=== PATIENT | male | born 1955 | race Caucasian/White ===

== ENCOUNTER 2021-04-04 20:58 | Inpatient (IN) | payer MEDICARE, MEDICAID ==
[~2021-04-04] VITALS: Ht 188 cm; Wt 129.6 kg
--- NOTE | 2021-04-04 21:40 | NUR ---
Pt is a poor historian. Pt c/o SOB, painful B LE, and edema to B LE. Coarse lung sounds throughout all swartz, +moist cough. Pt has a very large abd with redness below naval. Skin on abd has an orange peal look. B LE have edema and redness. L quijano has an area weeping serious fluid.
[2021-04-04 21:48] LABS: BASOPHILS # (AUTO) 0.1 X10'3 (0-0.2); EOSINOPHILS % (AUTO) 0.5 % (0-6); HEMOGLOBIN 13.4 g/dl (14.0-17.9)
[2021-04-04 21:50] LABS: BASOPHILS % (AUTO) 1.1 % (0-1); HEMATOCRIT 40.9 % (42.0-52.0); LYMPHOCYTES # (AUTO) 0.8 X10'3 (1.1-4.8); LYMPHOCYTES % (AUTO) 11.5 % (21-51); MEAN CORPUSCULAR HEMOGLOBIN 29.5 PG (27.0-31.0); MEAN CORPUSCULAR HGB CONC 32.8 g/dL (33.0-36.5); MEAN PLATELET VOLUME 7.6 FL (7.4-10.4); MONOCYTES % (AUTO) 14.8 % (2-12); NEUTROPHILS % (AUTO) 72.1 % (42-75); PLATELET COUNT 225 X10'3 (140-440); RED BLOOD COUNT 4.55 X10'6 (4.70-6.10); RED CELL DISTRIBUTION WIDTH 16.7 % (11.5-14.5); WHITE BLOOD COUNT 6.9 X10'3 (4.5-11.0)
[2021-04-04 21:54] LABS: ALANINE AMINOTRANSFERASE 42 U/L (12-78); ALBUMIN 3.3 G/DL (3.4-5.0); ALBUMIN/GLOBULIN RATIO 0.7 (1.1-1.5); ALKALINE PHOSPHATASE 95 IU/L (46-116); ANION GAP 6 (8-16); ASPARTATE AMINO TRANSFERASE 19 U/L (10-37); BILIRUBIN,TOTAL 0.4 MG/DL (0.1-1.0); BLOOD UREA NITROGEN 19 MG/DL (7-18); BUN/CREATININE RATIO 17.4 (5.4-32.0); CALCIUM 7.9 MG/DL (8.5-10.1); CHLORIDE 101 MMOL/L (99-107); CREATININE 1.09 MG/DL (0.60-1.10); GLUCOSE 211 MG/DL (70-104); SODIUM 140 MMOL/L (135-145); TOTAL CARBON DIOXIDE 33.3 MMOL/L (24-32); TOTAL PROTEIN 7.8 G/DL (6.4-8.2); eGFR 68 ML/MIN
[2021-04-04] MEDS ORDERED: furosemide 10 MG/1 ML 10ml inj IV ONE (22:25)
--- NOTE | 2021-04-04 22:45 | NUR ---
Placed a condom catheter on pt for urine collection and comfort.
[2021-04-04] MEDS ORDERED: iohexol 350MG/ML 100ml bottle IV ONE (23:05)
[2021-04-04] MEDS ORDERED: LORazepam 1 MG tablet PO ONE (23:35)
[2021-04-04] MEDS ORDERED: LORazepam 2 mg/ml vial IM ONE (23:40)
[2021-04-04] MEDS ORDERED: LORazepam 2 mg/ml vial IV ONE (23:50)
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
[2021-04-05 00:14] LABS: CLARITY,URINE CLEAR (Clear); GLUCOSE, URINE NEGATIVE (Neg); KETONES,URINE NEGATIVE (Neg); LEUKOCYTE ESTERASE ,URINE NEGATIVE (Neg); NITRITES, URINE NEGATIVE (Neg); OCCULT BLOOD,URINE NEGATIVE (Neg); PROTEIN,URINE NEGATIVE (Neg); UROBILINOGEN,URINE 0.2 E.U/dL (0.2-1.0)
[2021-04-05 00:16] LABS: UA COLLECTION TYPE CLN CATCH MIDSTREAM
[2021-04-05 00:21] LABS: COLOR,URINE Straw (Yellow)
--- NOTE | 2021-04-05 00:25 | NUR ---
Report given to HALEY Reddy.
[2021-04-05] MEDS ORDERED: morphine 2 MG/ML inj. syringe IV PRN ×2 (02:35)
[2021-04-05] MEDS ORDERED: normal saline 1000ml 1,000 ML IV SCH (02:35)
[2021-04-05] MEDS ORDERED: HYDROmorphone/PF 0.2 MG/ML SYRINGE IV PRN (02:35)
[2021-04-05] MEDS ORDERED: magnesium hydroxide 30ml (MOM) UD suspension PO PRN (02:35)
[2021-04-05] MEDS ORDERED: bisacodyl 10mg suppository rectal RC PRN (02:35)
[2021-04-05] MEDS ORDERED: diphenhydrAMINE 25mg capsule PO PRN (02:35)
[2021-04-05] MEDS ORDERED: mag hydrox/Alum hydrox/simeth 30ml oral suspension PO PRN (02:35)
[2021-04-05] MEDS ORDERED: diphenhydrAMINE 50 mg/ml inj IV PRN (02:35)
[2021-04-05] MEDS ORDERED: HYDROcodone/acetaminophen 5mg/325mg tablet PO PRN (02:35)
[2021-04-05] MEDS ORDERED: acetaminophen 325mg tablet PO PRN ×2 (02:35)
[2021-04-05] MEDS ORDERED: HYDROmorphone inj. 0.5 MG/0.5 ML DISP.SYRIN IV PRN (02:35)
[2021-04-05] MEDS ORDERED: ondansetron 4mg rapidly disintigrating tab PO PRN (02:35)
[2021-04-05] MEDS ORDERED: ondansetron/PF 4mg/2ml inj IV PRN (02:35)
[2021-04-05] MEDS ORDERED: acetaminophen 650mg rectal suppository RC PRN (02:35)
[2021-04-05] MEDS ORDERED: MESSAGE TO PHARMACY PO ONE (02:45)
[2021-04-05] MEDS ORDERED: dextrose 50%-water 50ml dispensing syringe IV PRN ×2 (02:45)
[2021-04-05] MEDS ORDERED: dextrose ORAL solution 15 GM/59 ML bottle PO PRN ×2 (02:45)
[2021-04-05] MEDS ORDERED: glucagon, human recombinant 1mg kit SUBCUT PRN (02:45)
[2021-04-05] MEDS ORDERED: insulin Lispro (HumaLOG) vial - multi-dose SQ SCH (02:45)
[2021-04-05 03:52] LABS: URINE AMPHETAMINE SCREEN NEGATIVE (Neg); URINE BARBITUATE SCREEN NEGATIVE (Neg); URINE BENZODIAZEPINES SCREEN NEGATIVE (Neg); URINE CANNABINOID SCREEN NEGATIVE (Neg); URINE COCAINE SCREEN NEGATIVE (Neg); URINE METHADONE SCREEN NEGATIVE (Neg); URINE OPIATE SCREEN NEGATIVE (Neg); URINE PHENCYCLIDINE SCREEN NEGATIVE (Neg)
[2021-04-05 05:16] VITALS: BP 135/87
[2021-04-05 07:00] VITALS: BP 113/62
[2021-04-05] MEDS ORDERED: FLU VACC QS2021-22(6MOS UP)/PF 60 MCG/0.5 ML SYRINGE IM ONE (07:10)
[2021-04-05 07:55] LABS: CREATINE KINASE 94 U/L (39-308); LIPASE 64 U/L (73-393); MAGNESIUM 2.2 MG/DL (1.5-2.4); PHOSPHORUS 4.9 MG/DL (2.3-4.5)
[2021-04-05] MEDS ORDERED: enoxaparin 40mg/0.4ml syringe SUBCUT SCH (08:00)
[2021-04-05] MEDS ORDERED: lisinopril 10 MG tablet PO SCH (08:00)
[2021-04-05] MEDS: nitroGLYCERIN 0.4mg/hour patch TD SCH (08:00)
[2021-04-05] MEDS ORDERED: furosemide 10 MG/1 ML 10ml inj IV SCH (08:00)
[2021-04-05] MEDS: pantoprazole 40mg Tablet.DR PO SCH (08:05)
[2021-04-05] MEDS: atorvastatin 20mg tablet PO SCH (08:06)
[2021-04-05] MEDS: docusate sod 100mg capsule PO SCH ×2 (08:11→19:16)
[2021-04-05] MEDS: amLODIPine 5mg tablet PO SCH (08:12)
[2021-04-05 08:14] LABS: ALANINE AMINOTRANSFERASE 38 U/L (12-78); ALBUMIN 3.1 G/DL (3.4-5.0); ALBUMIN/GLOBULIN RATIO 0.7 (1.1-1.5); ALKALINE PHOSPHATASE 76 IU/L (46-116); ANION GAP 7 (8-16); ASPARTATE AMINO TRANSFERASE 21 U/L (10-37); BILIRUBIN,TOTAL 0.5 MG/DL (0.1-1.0); BLOOD UREA NITROGEN 14 MG/DL (7-18); BUN/CREATININE RATIO 16.7 (5.4-32.0); CALCIUM 7.8 MG/DL (8.5-10.1); CHLORIDE 103 MMOL/L (99-107); CREATININE 0.84 MG/DL (0.60-1.10); GLUCOSE 135 MG/DL (70-104); POTASSIUM 4.1 MMOL/L (3.5-5.1); SODIUM 143 MMOL/L (135-145); TOTAL CARBON DIOXIDE 32.8 MMOL/L (24-32); TOTAL PROTEIN 7.6 G/DL (6.4-8.2); eGFR > 90 ML/MIN
[2021-04-05] MEDS ORDERED: potassium Cl 40MEQ/1/2NS 520ml 520 ML IV PRN (10:35)
[2021-04-05] MEDS ORDERED: potassium Cl 20 mEq SR tablet PO PRN ×2 (10:35)
[2021-04-05] MEDS ORDERED: magnesium Cl slow-release 64mg tablet PO PRN (10:35)
[2021-04-05] MEDS ORDERED: magnesium 4gm in 100ml NS 100 ML IV PRN (10:35)
[2021-04-05] MEDS ORDERED: magnesium 2GM in 50ml NS 50 ML IV PRN (10:35)
[2021-04-05 11:00] VITALS: BP 140/75
[2021-04-05 11:02] LABS: BASOPHILS # (AUTO) 0.1 X10'3 (0-0.2); BASOPHILS % (AUTO) 1.5 % (0-1); EOSINOPHILS % (AUTO) 0.5 % (0-6); HEMOGLOBIN 13.2 g/dl (14.0-17.9); LYMPHOCYTES # (AUTO) 0.7 X10'3 (1.1-4.8); LYMPHOCYTES % (AUTO) 9.5 % (21-51); MEAN CORPUSCULAR HEMOGLOBIN 29.8 PG (27.0-31.0); MEAN CORPUSCULAR VOLUME 90.4 FL (78-98); MEAN PLATELET VOLUME 7.9 FL (7.4-10.4); MONOCYTES # (AUTO) 1.2 X10'3 (0-0.9); MONOCYTES % (AUTO) 16.7 % (2-12); NEUTROPHILS # (AUTO) 5.4 X10'3 (1.8-7.7); NEUTROPHILS % (AUTO) 71.8 % (42-75); PLATELET COUNT 216 X10'3 (140-440); RED BLOOD COUNT 4.43 X10'6 (4.70-6.10); RED CELL DISTRIBUTION WIDTH 16.3 % (11.5-14.5); WHITE BLOOD COUNT 7.5 X10'3 (4.5-11.0)
[2021-04-05 11:11] LABS: D-DIMER 0.82 MG/L FEU (0-0.50)
[2021-04-05] MEDS ORDERED: FLO0.4C PO (11:38)
[2021-04-05] MEDS ORDERED: FLUT1DIS20 INH (11:38)
[2021-04-05] MEDS ORDERED: BUSP15TA8 PO (11:38)
[2021-04-05] MEDS ORDERED: APIX5TAB3 PO (11:38)
[2021-04-05] MEDS ORDERED: LISI20TA28 PO (11:38)
[2021-04-05] MEDS ORDERED: FURO40TA4 PO (11:38)
[2021-04-05] MEDS ORDERED: FAMO20TA82 PO (11:38)
[2021-04-05] MEDS ORDERED: METO-467 PO (11:38)
[2021-04-05 11:51] LABS: ANISOCYTOSIS 1+; PLATELET ESTIMATE NORMAL; TOTAL CELLS COUNTED 100
[2021-04-05 11:52] LABS: POLYCHROMASIA 1+
--- NOTE | 2021-04-05 14:05 | NUR ---
Diabetes consult: Noted A1C 7. Pt unavailable at time of assessment. Placed written DM education w/ RD contact info in pt chart. Addendum: 04/05/21 at [address] Amended: Links added.
[2021-04-05 15:00] VITALS: BP 115/61
--- NOTE | 2021-04-05 17:26 | NUR ---
pt had large incontinent episode this morning with the whole bed soaked in urine and one unmeasured urination episode in the toilet . Pt educated on use of urinal and the importance of measuring urine .
[2021-04-05 18:00] VITALS: BP 98/57
--- NOTE | 2021-04-05 18:15 | NUR ---
Problems reprioritized. Patient report given, questions answered & plan of care reviewed with Mora DE LEON. Patient resting in bed in no acute distress.
--- NOTE | 2021-04-05 18:28 | NUR ---
Patient in room PCU 3015. I have received report from Adwoa DE LEON and had the opportunity to ask questions and assume patient care.
[2021-04-05] MEDS: famotidine 20mg tablet PO SCH (19:13)
[2021-04-05] MEDS: busPIRone 15mg tablet PO SCH (19:14)
[2021-04-05] MEDS: apixaban 5mg tablet PO SCH (19:14)
[2021-04-05] MEDS: furosemide 40mg/4ml inj IV SCH (19:15)
[2021-04-05] MEDS: metoprolol tartrate 50mg tablet PO SCH (19:15)
[2021-04-05] MEDS: K and/or MAG REPLACEMENT MC SCH (20:00)
[2021-04-05] MEDS ORDERED: furosemide 20 MG/2 ML vial IV SCH (20:00)
[2021-04-05] MEDS: albuterol 2.5 MG/3 ML nebule NEB SCH (20:38)
[2021-04-05] MEDS: budesonide 0.5mg/2ml UD nebule IH SCH (20:38)
[2021-04-05] MEDS: insulin glargine (Lantus) pen - multi-dose SQ SCH (21:00)
[2021-04-05] MEDS ORDERED: temazepam 15mg capsule PO PRN (21:00)
[2021-04-05] MEDS: tamsulosin 0.4mg capsule PO SCH (21:29)
[2021-04-05 22:00] VITALS: BP 101/57
[2021-04-06 02:00] VITALS: BP 114/58
[2021-04-06] MEDS: albuterol 2.5 MG/3 ML nebule NEB SCH ×4 (02:11→21:13)
--- NOTE | 2021-04-06 06:25 | NUR ---
Problems reprioritized. Patient report given, questions answered & plan of care reviewed with Sohail DE LEON.
--- NOTE | 2021-04-06 06:29 | NUR ---
Patient in room PCU 3015. I have received report from Mora DE LEON and had the opportunity to ask questions and assume patient care.
[2021-04-06 06:55] LABS: BASOPHILS # (AUTO) 0.1 X10'3 (0-0.2); EOSINOPHILS # (AUTO) 0.1 X10'3 (0-0.9); HEMATOCRIT 38.2 % (42.0-52.0); HEMOGLOBIN 12.5 g/dl (14.0-17.9); LYMPHOCYTES # (AUTO) 0.7 X10'3 (1.1-4.8); LYMPHOCYTES % (AUTO) 10.8 % (21-51); MEAN CORPUSCULAR HEMOGLOBIN 29.4 PG (27.0-31.0); MEAN CORPUSCULAR HGB CONC 32.7 g/dL (33.0-36.5); MEAN CORPUSCULAR VOLUME 89.9 FL (78-98); MEAN PLATELET VOLUME 7.7 FL (7.4-10.4); MONOCYTES # (AUTO) 0.9 X10'3 (0-0.9); MONOCYTES % (AUTO) 15.4 % (2-12); NEUTROPHILS # (AUTO) 4.4 X10'3 (1.8-7.7); NEUTROPHILS % (AUTO) 71.8 % (42-75); PLATELET COUNT 212 X10'3 (140-440); RED BLOOD COUNT 4.24 X10'6 (4.70-6.10); RED CELL DISTRIBUTION WIDTH 16.7 % (11.5-14.5); WHITE BLOOD COUNT 6.1 X10'3 (4.5-11.0)
[2021-04-06 07:00] VITALS: BP 100/55
--- NOTE | 2021-04-06 07:01 | NUR ---
Patient in room PCU 3015. I have received report from Mora DE LEON and had the opportunity to ask questions and assume patient care.
[2021-04-06 07:27] LABS: ALANINE AMINOTRANSFERASE 41 U/L (12-78); ALBUMIN 3.1 G/DL (3.4-5.0); ALBUMIN/GLOBULIN RATIO 0.7 (1.1-1.5); ALKALINE PHOSPHATASE 63 IU/L (46-116); ANION GAP 6 (8-16); ASPARTATE AMINO TRANSFERASE 29 U/L (10-37); BILIRUBIN,TOTAL 0.6 MG/DL (0.1-1.0); BLOOD UREA NITROGEN 20 MG/DL (7-18); BUN/CREATININE RATIO 16.3 (5.4-32.0); CALCIUM 7.8 MG/DL (8.5-10.1); CHLORIDE 98 MMOL/L (99-107); CHOL/HDL RATIO 3.5 (0.00-4.99); CHOLESTEROL 118 MG/DL (0-200); CREATININE 1.23 MG/DL (0.60-1.10); GLUCOSE 133 MG/DL (70-104); HDL CHOLESTEROL 34 MG/DL (35-60); LDL CHOLESTEROL 72 MG/DL (50-100); MAGNESIUM 2.2 MG/DL (1.5-2.4); PHOSPHORUS 3.2 MG/DL (2.3-4.5); SODIUM 136 MMOL/L (135-145); TOTAL CARBON DIOXIDE 32.1 MMOL/L (24-32); TOTAL PROTEIN 7.5 G/DL (6.4-8.2); TRIGLYCERIDES 67 MG/DL (20-135); eGFR 59 ML/MIN
[2021-04-06] MEDS ORDERED: furosemide 40mg tablet PO SCH (08:00)
[2021-04-06] MEDS: nitroGLYCERIN 0.4mg/hour patch TD SCH (08:00)
[2021-04-06] MEDS: K and/or MAG REPLACEMENT MC SCH ×2 (08:00→20:00)
[2021-04-06] MEDS: famotidine 20mg tablet PO SCH ×2 (08:13→20:21)
[2021-04-06] MEDS: amLODIPine 5mg tablet PO SCH (08:13)
[2021-04-06] MEDS: furosemide 40mg/4ml inj IV SCH ×2 (08:13→20:28)
[2021-04-06] MEDS: pantoprazole 40mg Tablet.DR PO SCH (08:13)
[2021-04-06] MEDS: atorvastatin 20mg tablet PO SCH (08:13)
[2021-04-06] MEDS: metoprolol tartrate 50mg tablet PO SCH ×2 (08:14→20:25)
[2021-04-06] MEDS: lisinopril 20mg tablet PO SCH (08:14)
[2021-04-06] MEDS: docusate sod 100mg capsule PO SCH ×2 (08:14→20:21)
[2021-04-06] MEDS: apixaban 5mg tablet PO SCH ×2 (08:14→20:21)
[2021-04-06] MEDS: busPIRone 15mg tablet PO SCH ×2 (08:14→20:20)
[2021-04-06] MEDS: HYDROcodone/acetaminophen 10/325mg tab PO PRN (08:32)
[2021-04-06] MEDS: budesonide 0.5mg/2ml UD nebule IH SCH ×2 (08:51→21:14)
[2021-04-06 10:04] LABS: TOTAL CELLS COUNTED 100
[2021-04-06 10:05] LABS: ANISOCYTOSIS 1+; PLATELET ESTIMATE NORMAL
[2021-04-06 11:00] VITALS: BP 104/54
--- NOTE | 2021-04-06 11:00 | NUR ---
Page Sent to Dr. Freeman notifying him of 5 beat run SVT promotional table spacer PAGER ID: [phone] MESSAGE: [id number]. [place]. PT had 5 run beat of SVT this morning. I am putting in an order to keep on tele cause he only had a 24 hour order that has . Please if you have additional orders. Gauri [id number]
[2021-04-06 15:00] VITALS: BP 133/69
--- NOTE | 2021-04-06 15:12 | NUR ---
WOUND INFECTION EDUCATION PROVIDED BY WOUND CARE 1. Patient instructed to call their primary doctor, or go the ED immediately if any of the following symptoms occur: * Increased pain in wound * Increase in drainage from the wound * Redness in the skin surrounding the wound * Warmth in the skin surrounding the wound * Bleeding from the wound * Temperature of 101 or greater 2. If any of these occur while in the hospital tell a nurse immediately. Addendum: 04/06/21 at 1513 by Everett Wheeler RN Amended: Links added.
[2021-04-06 18:00] VITALS: BP 127/72
--- NOTE | 2021-04-06 18:17 | NUR ---
[facility] documentation: I have reviewed and agree with all interventions, assessments performed and documented by Claudia DE LEON . [facility] Medication Administration: For this medication-pass time frame, all medication were reviewed, dispensed, administered and documented per hospital policy by Claudia DE LEON .
--- NOTE | 2021-04-06 18:29 | NUR ---
Problems reprioritized. Patient report given, questions answered & plan of care reviewed with Alejandra DE LEON. Patient resting in bed in no acute distress.
[2021-04-06] MEDS: nystatin 15 GM powder TP SCH (20:26)
[2021-04-06] MEDS: mineral oil/petrolatum, white cream 113gm jar TP SCH (20:58)
[2021-04-06] MEDS: insulin glargine (Lantus) pen - multi-dose SQ SCH (21:00)
[2021-04-06] MEDS: tamsulosin 0.4mg capsule PO SCH (21:01)
[2021-04-06 22:00] VITALS: BP 114/62
[2021-04-07] MEDS: HYDROcodone/acetaminophen 10/325mg tab PO PRN ×3 (01:39→21:32)
[2021-04-07 02:00] VITALS: BP 109/55
[2021-04-07] MEDS: albuterol 2.5 MG/3 ML nebule NEB SCH ×4 (02:52→20:09)
[2021-04-07 06:00] VITALS: BP 133/53
[2021-04-07 06:46] LABS: BASOPHILS % (AUTO) 0.7 % (0-1); EOSINOPHILS # (AUTO) 0.1 X10'3 (0-0.9); HEMATOCRIT 38.2 % (42.0-52.0); HEMOGLOBIN 12.6 g/dl (14.0-17.9); LYMPHOCYTES # (AUTO) 0.6 X10'3 (1.1-4.8); LYMPHOCYTES % (AUTO) 10.6 % (21-51); MEAN CORPUSCULAR HEMOGLOBIN 29.6 PG (27.0-31.0); MEAN CORPUSCULAR HGB CONC 33.1 g/dL (33.0-36.5); MEAN CORPUSCULAR VOLUME 89.3 FL (78-98); MEAN PLATELET VOLUME 7.8 FL (7.4-10.4); MONOCYTES # (AUTO) 0.8 X10'3 (0-0.9); MONOCYTES % (AUTO) 15.1 % (2-12); NEUTROPHILS # (AUTO) 3.9 X10'3 (1.8-7.7); NEUTROPHILS % (AUTO) 72.6 % (42-75); PLATELET COUNT 179 X10'3 (140-440); RED BLOOD COUNT 4.27 X10'6 (4.70-6.10); RED CELL DISTRIBUTION WIDTH 16.6 % (11.5-14.5); WHITE BLOOD COUNT 5.4 X10'3 (4.5-11.0)
--- NOTE | 2021-04-07 06:47 | NUR ---
Patient in room PCU 3015. I have received report from Alejandra DE LEON and had the opportunity to ask questions and assume patient care.
[2021-04-07 07:47] LABS: ALANINE AMINOTRANSFERASE 38 U/L (12-78); ALBUMIN/GLOBULIN RATIO 0.7 (1.1-1.5); ALKALINE PHOSPHATASE 61 IU/L (46-116); ANION GAP 3 (8-16); ASPARTATE AMINO TRANSFERASE 31 U/L (10-37); BILIRUBIN,TOTAL 0.4 MG/DL (0.1-1.0); BLOOD UREA NITROGEN 22 MG/DL (7-18); BUN/CREATININE RATIO 20.6 (5.4-32.0); CALCIUM 8.3 MG/DL (8.5-10.1); CHLORIDE 99 MMOL/L (99-107); CREATININE 1.07 MG/DL (0.60-1.10); GLUCOSE 139 MG/DL (70-104); MAGNESIUM 2.6 MG/DL (1.5-2.4); PHOSPHORUS 4.3 MG/DL (2.3-4.5); POTASSIUM 4.5 MMOL/L (3.5-5.1); SODIUM 138 MMOL/L (135-145); TOTAL CARBON DIOXIDE 35.7 MMOL/L (24-32); TOTAL PROTEIN 7.5 G/DL (6.4-8.2); eGFR 69 ML/MIN
[2021-04-07] MEDS: K and/or MAG REPLACEMENT MC SCH ×2 (08:00→20:00)
[2021-04-07] MEDS: mineral oil/petrolatum, white cream 113gm jar TP SCH ×2 (08:00→21:43)
[2021-04-07] MEDS: nitroGLYCERIN 0.4mg/hour patch TD SCH (08:00)
[2021-04-07] MEDS: busPIRone 15mg tablet PO SCH ×2 (08:33→21:31)
[2021-04-07] MEDS: lisinopril 20mg tablet PO SCH (08:33)
[2021-04-07] MEDS: amLODIPine 5mg tablet PO SCH (08:34)
[2021-04-07] MEDS: docusate sod 100mg capsule PO SCH ×2 (08:34→20:00)
[2021-04-07] MEDS: metoprolol tartrate 50mg tablet PO SCH ×2 (08:34→21:43)
[2021-04-07] MEDS: apixaban 5mg tablet PO SCH ×2 (08:34→21:32)
[2021-04-07] MEDS: pantoprazole 40mg Tablet.DR PO SCH (08:35)
[2021-04-07] MEDS: furosemide 40mg/4ml inj IV SCH ×2 (08:35→21:31)
[2021-04-07] MEDS: atorvastatin 20mg tablet PO SCH (08:35)
[2021-04-07] MEDS: famotidine 20mg tablet PO SCH ×2 (08:35→21:43)
[2021-04-07] MEDS: budesonide 0.5mg/2ml UD nebule IH SCH ×2 (09:06→20:09)
--- NOTE | 2021-04-07 09:58 | NUR ---
Unable to check blood glucose, I was in another patients room for an emergency, we had no resource nurse to obtain the BG either. Patient has not met protocol thus far. Will check at the noontime hour. Also, we educated patient about the importance of using the urinal to obtain accurate I & O documentation. Addendum: 04/07/21 at 1002 by Claudia Lindsay RN Amended: Links added.
[2021-04-07 11:00] VITALS: BP 97/45
[2021-04-07] MEDS: nystatin 15 GM powder TP SCH ×2 (15:28→21:33)
[2021-04-07 16:07] VITALS: BP 110/62
--- NOTE | 2021-04-07 17:56 | NUR ---
[facility] documentation: I have reviewed and agree with all interventions, assessments performed and documented by Claudia DE LEON . [facility] Medication Administration: For this medication-pass time frame, all medication were reviewed, dispensed, administered and documented per hospital policy by Claudia DE LEON.
[2021-04-07 18:00] VITALS: BP 134/64
--- NOTE | 2021-04-07 18:06 | NUR ---
Problems reprioritized. Patient report given, questions answered & plan of care reviewed with Alejandra DE LEON.
[2021-04-07] MEDS: insulin glargine (Lantus) pen - multi-dose SQ SCH (21:00)
[2021-04-07] MEDS: tamsulosin 0.4mg capsule PO SCH (21:31)
[2021-04-07 22:00] VITALS: BP 127/37
[2021-04-08 02:00] VITALS: BP 148/88
[2021-04-08] MEDS: albuterol 2.5 MG/3 ML nebule NEB SCH ×2 (03:51→08:45)
--- NOTE | 2021-04-08 05:49 | NUR ---
Wound care to bilateral lower extremities completed. Legs cleansed with soap and water and gently dabbed dry. curgard applied to blistered areas and legs wrapped with gauze bandage and taped. Pt encouraged to keep legs elevated. Pt up to recliner chair with legs elevated.
--- NOTE | 2021-04-08 06:59 | NUR ---
Patient in room PCU 3015. I have received report from Alejandra DE LEON and had the opportunity to ask questions and assume patient care. Pt semi fowlers in bed side recliner, legs wrapped in kerlex, elevated as tolerated, 3LPM. no sob. chest rising and falling evenly. safety measures in place. no s/sx acute distress.
[2021-04-08 07:00] VITALS: BP 147/64
[2021-04-08 07:05] LABS: BASOPHILS # (AUTO) 0.1 X10'3 (0-0.2); BASOPHILS % (AUTO) 1.5 % (0-1); EOSINOPHILS # (AUTO) 0.1 X10'3 (0-0.9); EOSINOPHILS % (AUTO) 1.5 % (0-6); HEMATOCRIT 37.6 % (42.0-52.0); HEMOGLOBIN 12.5 g/dl (14.0-17.9); LYMPHOCYTES # (AUTO) 0.6 X10'3 (1.1-4.8); LYMPHOCYTES % (AUTO) 11.4 % (21-51); MEAN CORPUSCULAR HEMOGLOBIN 29.3 PG (27.0-31.0); MEAN CORPUSCULAR HGB CONC 33.2 g/dL (33.0-36.5); MEAN CORPUSCULAR VOLUME 88.2 FL (78-98); MONOCYTES # (AUTO) 0.7 X10'3 (0-0.9); MONOCYTES % (AUTO) 11.8 % (2-12); NEUTROPHILS # (AUTO) 4.2 X10'3 (1.8-7.7); NEUTROPHILS % (AUTO) 73.8 % (42-75); PLATELET COUNT 185 X10'3 (140-440); RED BLOOD COUNT 4.26 X10'6 (4.70-6.10); RED CELL DISTRIBUTION WIDTH 16.6 % (11.5-14.5); WHITE BLOOD COUNT 5.7 X10'3 (4.5-11.0)
[2021-04-08 07:47] LABS: ALANINE AMINOTRANSFERASE 39 U/L (12-78); ALBUMIN 3.1 G/DL (3.4-5.0); ALBUMIN/GLOBULIN RATIO 0.7 (1.1-1.5); ALKALINE PHOSPHATASE 63 IU/L (46-116); ANION GAP 6 (8-16); ASPARTATE AMINO TRANSFERASE 27 U/L (10-37); BILIRUBIN,TOTAL 0.4 MG/DL (0.1-1.0); BLOOD UREA NITROGEN 19 MG/DL (7-18); BUN/CREATININE RATIO 20.7 (5.4-32.0); CALCIUM 8.2 MG/DL (8.5-10.1); CHLORIDE 99 MMOL/L (99-107); CREATININE 0.92 MG/DL (0.60-1.10); GLUCOSE 112 MG/DL (70-104); MAGNESIUM 2.4 MG/DL (1.5-2.4); PHOSPHORUS 2.9 MG/DL (2.3-4.5); POTASSIUM 4.7 MMOL/L (3.5-5.1); SODIUM 140 MMOL/L (135-145); TOTAL CARBON DIOXIDE 34.9 MMOL/L (24-32); TOTAL PROTEIN 7.7 G/DL (6.4-8.2); eGFR 82 ML/MIN
[2021-04-08] MEDS: docusate sod 100mg capsule PO SCH (08:00)
[2021-04-08] MEDS: mineral oil/petrolatum, white cream 113gm jar TP SCH (08:00)
[2021-04-08] MEDS: K and/or MAG REPLACEMENT MC SCH (08:00)
[2021-04-08] MEDS: nystatin 15 GM powder TP SCH (08:00)
[2021-04-08] MEDS: budesonide 0.5mg/2ml UD nebule IH SCH (08:45)
[2021-04-08] MEDS ORDERED: ATOR20TA66 PO (09:36)
[2021-04-08] MEDS ORDERED: METF-1203 PO (09:36)
[2021-04-08] MEDS ORDERED: NOR5T PO (09:36)
[2021-04-08] MEDS ORDERED: LINA5TAB4 PO (09:36)
[2021-04-08] MEDS ORDERED: PANT40TA54 PO (09:36)
[2021-04-08] MEDS ORDERED: ALBU8.5H17 INH (09:39)
[2021-04-08] MEDS: apixaban 5mg tablet PO SCH (10:07)
[2021-04-08] MEDS: pantoprazole 40mg Tablet.DR PO SCH (10:07)
[2021-04-08] MEDS: famotidine 20mg tablet PO SCH (10:07)
[2021-04-08] MEDS: lisinopril 20mg tablet PO SCH (10:08)
[2021-04-08] MEDS: metoprolol tartrate 50mg tablet PO SCH (10:08)
[2021-04-08] MEDS: atorvastatin 20mg tablet PO SCH (10:08)
[2021-04-08] MEDS: busPIRone 15mg tablet PO SCH (10:08)
[2021-04-08] MEDS: amLODIPine 5mg tablet PO SCH (10:08)
[2021-04-08] MEDS: nitroGLYCERIN 0.4mg/hour patch TD SCH (10:09)
[2021-04-08] MEDS: furosemide 40mg/4ml inj IV SCH (10:09)
[2021-04-08 11:00] VITALS: BP 140/69
--- NOTE | 2021-04-08 11:38 | NUR ---
O2 Sat at rest on room air 87% If below 89%: Recovery O2 Sat at rest: 92% on 2 LPM via nasal cannula With ambulation on room air, O2 Sat: 82%.
--- NOTE | 2021-04-08 14:40 | NUR ---
Per pt "I am not going to carry around some oxygen tank." pt noted to not be wearing oxygen for the 5th time since breakfast. Discussed oxygen needs/education pt regarding the necessity of supplemental oxygen. pt minimally verbalized understanding. "i want an oxygen generator [concentrator] not some tanks."
--- NOTE | 2021-04-08 15:00 | NUR ---
Pt refused to allow nurse to photo BLE. "No girl i dont need none of that. no. we ain't doing that. "
--- NOTE | 2021-04-08 15:20 | NUR ---
Pt refusing to stay in the room. pt demanding to go down to the lobby.
--- NOTE | 2021-04-08 15:25 | NUR ---
Oxygen delievered. pt stable for discharge per MD order. Full discharge instructions explained to pt. all questions answered. Pt stated "im not taking this packet with me. i dont need it. i aint gonna look at it." New Rx escripted to [facility] [address] despite pt stating he has no intention of picking them up. "i dont need any of those meds." pt education futile. pt's mind made up. PIV discontinued. cannula intact. lunchroom monitor discontinued. pt wheeled to lobby with his two oxygen tanks and cannula, instructed that oxygen would be delivered to the [facility] for him. Pt loaded up into [facility] managed transportation and left for [facility]. pt left verbal, without s/sx acute distress
== END 2021-04-08 15:22 | disposition home or self-care (01) | DRG 291 ==
LOC: ER 20:59 → ED HOLD 04-05 02:43 → PCU 3S 04-05 04:30
PROVIDERS: ADMIT Family Medicine; ATTEND Family Medicine
PROC: 3E02340 Introduction of Influenza Vaccine into Muscle, Percutaneous Approach (ICD-10-PCS; principal; 2021-04-05)
PROC: B32T1ZZ Computerized Tomography (CT Scan) of Left Pulmonary Artery using Low Osmolar Contrast (ICD-10-PCS; 2021-04-05)
PROC: B3201ZZ Computerized Tomography (CT Scan) of Thoracic Aorta using Low Osmolar Contrast (ICD-10-PCS; 2021-04-05)
PROC: B32S1ZZ Computerized Tomography (CT Scan) of Right Pulmonary Artery using Low Osmolar Contrast (ICD-10-PCS; 2021-04-05)
DX: I11.0 Hypertensive heart disease with heart failure (principal); I50.33 Acute on chronic diastolic (congestive) heart failure; J96.01 Acute respiratory failure with hypoxia; E66.2 Morbid (severe) obesity with alveolar hypoventilation; I16.0 Hypertensive urgency; E11.65 Type 2 diabetes mellitus with hyperglycemia; Z20.822 Contact with and (suspected) exposure to COVID-19; I49.9 Cardiac arrhythmia, unspecified; I87.003 Postthrombotic syndrome without complications of bilateral lower extremity; I49.3 Ventricular premature depolarization; L30.9 Dermatitis, unspecified; Z59.00 Homelessness unspecified; Z86.718 Personal history of other venous thrombosis and embolism; Z91.19 Patient's noncompliance with other medical treatment and regimen; Z68.36 Body mass index [BMI] 36.0-36.9, adult; Z23 Encounter for immunization
CPT/HCPCS: 36415; 71045; 71275; 80053; 80061; 80305; 81003; 82550; 82948; 83036; 83605; 83690; 83735; 83880; 84100; 84145; 84443; 84484; 85007; 85025; 85379; 85610; 87040; 87081; 87635; 92508; 92616; 93005; 93308; 94640; 94760; 97116; 97161; 97530; 99285; C9803; G0378; J1650; J1815; J1940; J2060; J7030; Q9967